=== PATIENT | male | born 2005 | race Asian ===

== ENCOUNTER 2023-07-06 18:20 | Observation (INO) ==
--- NOTE | 2023-07-06 18:54 | ED Triage Note ---
Date of Service July 06, 2023 History of Present Illness This patient was briefly evaluated while in triage. An abbreviated physical exam was performed. This patient is a 18-year-old Male who presents to the ED for evaluation of rhabdomyolysis. Patient states he was working out yesterday and saw [facility] today for pain across his back. He was called and told that his CK is elevated and that he had rhabdomyolysis. Physical Exam VITALS: Vitals are noted on the nurse's note and reviewed by myself. GENERAL: This is a 18-year-old male, in no acute distress, well-developed well- nourished. SKIN: The skin was without rashes, erythema, edema, or bruising. HEART: Regular rate and rhythm without murmurs gallops or rubs. LUNGS: Clear to auscultation bilaterally without wheezes, rales or rhonchi. NEURO: Patient was alert and oriented to person place and time. Initial orders for labs and / or imaging were placed and patient was placed in the waiting area until a bed is available. Please see further documentation for the full ED course. MDM / Impression Impression Impression: Rhabdomyolysis
[2023-07-06] MEDS ORDERED: SODIUM CHLORIDE 0.9% 2,000 ML IV ONE (20:58)
[2023-07-06 21:09] LABS: Basophils # (auto) 0.02 K/uL (0.00-0.20); Basophils % (auto) 0.2 %; Eosinophils % (auto) 1.1 %; Hematocrit (blood only) 41.8 % (42.0-52.0); Hemoglobin 14.9 g/dl (14.0-18.0); Immature Granulocytes # (auto) 0.03 K/uL (0.01-0.20); Immature Granulocytes % (auto) 0.3 %; Lymphocytes # (auto) 2.71 K/uL (1.20-3.40); Lymphocytes % (auto) 29.2 %; Mean Corpuscular Hemoglobin 31.2 pg (25.0-34.0); Mean Corpuscular Hgb Conc 35.6 g/dL (32.0-36.0); Mean Corpuscular Volume 87.4 fL (80.0-100.0); Mean Platelet Volume 9.4 fL (9.4-12.4); Monocytes # (auto) 0.55 K/uL (0.11-0.59); Monocytes % (auto) 5.9 %; Neutrophils # (auto) 5.88 K/uL (1.40-6.50); Neutrophils % (auto) 63.3 %; Platelet Count 214 K/uL (130-400); RDW Coefficient of Variation 11.1 % (11.5-14.5); RDW Standard Deviation 35.8 fL (36.4-46.3); Red Blood Count 4.78 M/uL (4.70-6.10); White Blood Count 9.29 K/ul (4.8-10.8)
[2023-07-06 21:28] LABS: Appearance Urine Clear (Clear); Bilirubin Urine Negative (Negative); Blood Urine Negative (Negative); Color Urine Yellow; Glucose Urine UA Negative (Negative); Ketones Urine Negative (Negative); Leukocyte Esterase Urine Negative (Negative); Nitrite Urine Negative (Negative); Protein Urine Negative (Negative); Specific Gravity Urine 1.009 (1.000-1.030); Urobilinogen Urine Negative (Negative)
[2023-07-06 21:28] LABS: BUN Creatinine Ratio 18.5 (10-20); Calcium 9.5 mg/dl (8.6-10.3); Creatinine Clr Calc Pharmacy 111.6 ml/min; Est GFR (African American) 138.3 ml/min; Est GFR (Non-African American) 119.3 ml/min; Potassium 3.5 mmol/L (3.5-5.1)
--- NOTE | 2023-07-06 21:44 | Emergency Department Note ---
History of Present Illness General Chief complaint: Illness Stated complaint: RHABDOMYOLYSIS, CK - 13K Time Seen by Provider: 07/06/23 20:58 History of Present Illness Maximum Pain Intensity: 6 18-year-old male presents emergency department with complaint of low back pain that started earlier today and some thigh pain. Patient states that he was at [facility] he was sent for further evaluation of rhabdo. Patient had lab work had a normal creatinine but he had a CPK of approximately 12,749. Patient states that he was lifting weights over the past week and then yesterday he was doing bench presses and upper extremity exercises and weightlifting. Patient has no prior history. Patient denies any nausea vomiting diarrhea abdominal pain decreased p.o. intake alcohol or caffeine ingestion. Past Med/Surg History Social History Smoking Status: Never smoker Preferred Language: Maltese Feels Safe at Home: Yes Immunizations: Past medical history denies past surgical history denies social history patient is a [employer] student Review of Systems A total of 10 systems reviewed and were otherwise negative Musculoskeletal: + back pain Physical Exam Vital Signs Vital Signs - 24 hr 07/06/23 18:50 07/06/23 21:21 07/06/23 21:29 Temperature 36.8 C Temperature Source Temporal Artery Scan Pulse Rate 62 58 L Pulse Rate [Apical] 60 Respiratory Rate 19 16 12 Respiratory Effort / Characteristics Non-Labored Respiratory Depth Normal Respiratory Pattern Regular Blood Pressure 113/67 Blood Pressure [Right Arm] 121/80 Blood Pressure Mean 82 Blood Pressure Mean [Right Arm] 93 Pulse Oximetry 100 100 100 Oxygen Delivery Method Room Air Room Air Room Air Sepsis Recent Fever Within 48 Hours No Sepsis New/Unexplained Change in Mental Status N/A Sepsis Action Taken by Nursing No Action Required 07/06/23 21:30 07/06/23 21:29 Temperature Temperature Source Pulse Rate 56 L 58 L Pulse Rate [Apical] Respiratory Rate 12 Respiratory Effort / Characteristics Respiratory Depth Respiratory Pattern Blood Pressure Blood Pressure [Right Arm] Blood Pressure Mean Blood Pressure Mean [Right Arm] Pulse Oximetry 100 Oxygen Delivery Method Room Air Sepsis Recent Fever Within 48 Hours Sepsis New/Unexplained Change in Mental Status Sepsis Action Taken by Nursing GENERAL: Patient is awake alert in no acute distress patient is resting comfortably and showing no signs of anxiety EYES: The conjunctivae are clear. The pupils are round and reactive. EARS, NOSE, MOUTH AND THROAT: The nose is without any evidence of any deformity. Mucous membranes are moist. Tongue is midline. NECK: The neck is nontender and supple. RESPIRATORY: Normal respiratory effort is noted there is no evidence of wheezing rhonchi or rales CARDIOVASCULAR: Regular rate and rhythm noted there no murmurs rubs or gallops normal S1 normal S2. GASTROINTESTINAL: The abdomen is soft. Abdomen is nontender. BACK: No midline tenderness or or step-off noted range of motion in flexion extension as well as rotation; tenderness bilateral lower lumbar region with muscle spasm present MUSCULOSKELETAL/EXTREMITIES: There is no evidence of gross deformity full range of motion is noted in the hips and shoulders. SKIN: There is no obvious evidence of any rash. There are no petechiae, pallor or cyanosis noted. NEUROLOGIC: Patient is awake alert and oriented x3 strength is symmetric Course Reevaluation(s) Reevaluation #1: Patient was started on IV fluids. Patient will be admitted for rhabdo. Patient is making urine Time: 21:55 Administered Medications Sodium Chloride (Nss 1000ml) 2,000 mls @ 999 mls/hr IV .Q2H1M ONE Stop: 07/06/23 22:58 Last Admin: 07/06/23 21:12 Dose: 999 mls/hr Documented By: ROMAINE Medical Decision Making Medical Records Attestation: I reviewed the patient's medical records. Home Medications Current Medication List: was personally reviewed by me Laboratory Data Attestation: I reviewed the patient's lab results. Labs interpreted by me show an elevated CK 07/06/23 20:55 07/06/23 20:55 Lab Results 07/06/23 07/06/23 07/06/23 Range/Units 20:55 20:55 21:08 WBC 9.29 (4.8-10.8) K/ul RBC 4.78 (4.70-6.10) M/uL Hgb 14.9 (14.0-18.0) g/dl Hct 41.8 L (42.0-52.0) % MCV 87.4 (80.0-100.0) fL MCH 31.2 (25.0-34.0) pg MCHC 35.6 (32.0-36.0) g/dL RDW Std Deviation 35.8 L (36.4-46.3) fL RDW Coeff of Vi 11.1 L (11.5-14.5) % Plt Count 214 (130-400) K/uL MPV 9.4 (9.4-12.4) fL Immature Gran % (Auto) 0.3 % Neut % (Auto) 63.3 % Lymph % (Auto) 29.2 % [place] % (Auto) 5.9 % Eos % (Auto) 1.1 % Baso % (Auto) 0.2 % Neut # (Auto) 5.88 (1.40-6.50) K/uL Lymph # (Auto) 2.71 (1.20-3.40) K/uL [place] # (Auto) 0.55 (0.11-0.59) K/uL Eos # (Auto) 0.10 (0.00-0.50) K/uL Baso # (Auto) 0.02 (0.00-0.20) K/uL Immature Gran # (Auto) 0.03 (0.01-0.20) K/uL Sodium 137 (136-145) mmol/L Potassium 3.5 (3.5-5.1) mmol/L Chloride 99 (98-107) mmol/L Carbon Dioxide 30 (21-32) mmol/L Anion Gap 8 (3-11) BUN 17 (6-23) mg/dl Creatinine 0.92 (0.6-1.4) mg/dl Est Cr Clr Drug Dosing 111.6 ml/min Est GFR ( Amer) 138.3 ml/min Est GFR (Non-Af Amer) 119.3 ml/min BUN/Creatinine Ratio 18.5 (10-20) Glucose 106 H (70-99(Fasting)) mg/dl Calcium 9.5 (8.6-10.3) mg/dl Magnesium 1.9 (1.7-2.4) mg/dl Total Bilirubin 0.5 (0.2-1.0) mg/dl AST 120 H (13-39) U/L ALT 79 H (7-52) U/L Alkaline Phosphatase 75 (34-104) U/L Total Creatine Kinase 7347 H (30-223) U/L Total Protein 7.6 (6.0-8.3) gm/dl Albumin 4.6 (3.4-5.0) gm/dl Globulin 3.0 (2.5-4.0) gm/dl Albumin/Globulin Ratio 1.5 (0.9-2) Urine Color Yellow Urine Appearance Clear (Clear) Urine pH 6.0 (4.5-7.5) Ur Specific [place] 1.009 (1.000-1.030) Urine Protein Negative (Negative) Urine Glucose (UA) Negative (Negative) Urine Ketones Negative (Negative) Urine Blood Negative (Negative) Urine Nitrite Negative (Negative) Urine Bilirubin Negative (Negative) Urine Urobilinogen Negative (Negative) Ur Leukocyte Esterase Negative (Negative) MDM Narrative Medical decision making differential diagnosis includes rhabdo, dehydration, electrolyte abnormality, metabolic derangement, muscle spasm Plan is to check labs, give IV fluids, monitor urine output, patient had an elevated CK as an outpatient and will be treated for rhabdo, patient will be admitted Impression & Plan Rhabdomyolysis Discharge Plan Visit Data Chief Complaint: Illness Stated Complaint: RHABDOMYOLYSIS, CK - 13K ED Provider: Finesse Mccray Discharge Problem: Rhabdomyolysis Patient Disposition: Admitted As Inpatient Forms Stand Alone Forms: My [facility] Referrals Referrals: [facility] [Primary Care Provider] -
[2023-07-06 21:49] LABS: Albumin Globulin Ratio 1.5 (0.9-2); Albumin Level 4.6 gm/dl (3.4-5.0); Bilirubin,Total 0.5 mg/dl (0.2-1.0); Magnesium 1.9 mg/dl (1.7-2.4); Total Protein 7.6 gm/dl (6.0-8.3)
--- NOTE | 2023-07-06 22:01 | History & Physical Report ---
Date of Service July 06, 2023 Assessment & Plan (1) Transaminitis: (2) Dehydration: (3) Rhabdomyolysis: Plan Rhabdomyolysis- Total CK 7347 Normal creatinine Patient is status post 2 L normal saline in the ED Continue rehydration with NSS + KCl 20 mEq at 150 mils per hour Repeat BMP, magnesium and CK in the a.m. Avoid acetaminophen and NSAIDs Transaminitis- AST 120, ALT 79- Secondary to rhabdomyolysis Continue IV fluids as above and recheck laboratories in a.m. If transaminitis is persistent or worsen, will add additional hepatitis serologies at that time. History of Present Illness Chief Complaint: The patient presents to the emergency department as a referral from [facility] where he went due to severe low back pain, and pain in bilateral thighs, and right ankle, all worsening over the past 24 to 48 hours, but began about 1 week ago. Primary Care Provider: [facility] The patient is a 18-year-old male with no significant past medical history or surgical history, who presents to the emergency department as a referral from [facility] as noted above. He reports that he has been exercising with weight lifting and other strenuous exercise over the past week. He notes that over the past 24 to 48 hours he has developed worsening low back pain that initially became apparent after waking up, and bilateral thigh pain, with right ankle pain, that occurred when he twisted his ankle. He a [facility] had laboratories performed, and was told that his muscle enzyme was elevated, that he had rhabdomyolysis, that he needed to come to the emergency department for assessment. He denies any use of muscle stimulants. Past Med/Surg History Social History Smoking Status: Never smoker Preferred Language: Bhutanese Feels Safe at Home: Yes Review of Systems Review of Systems: The patient denies chest pain, palpitations, shortness of breath, dyspnea on exertion, cough, lower extremity swelling, sore throat, fevers, chills, sweats, nausea, vomiting, diarrhea , constipation, abdominal pain, pelvic pain, blood in urine or stool, dysuria, urinary frequency or urgency, lightheadedness, dizziness, headache, memory loss, loss of consciousness, rash, abnormal bruising or bleeding, neck pain, or night sweats. The review of systems is otherwise negative other than for that already noted above, and at least 10 systems have been reviewed. Physical Exam 2 Physical Exam: The patient is awake, alert and oriented 3, well developed and well nourished, normocephalic and atraumatic, lying in bed and in no acute distress. HEENT--PERRL, EOMI, mucous membranes and oropharynx dry. Neck--supple. No JVD. No bruits. Thyroid normal, trachea midline, no adenopathy. Heart--normal S1 and S2. No murmurs, rubs or gallops. Lungs--clear bilaterally, no respiratory distress, no accessory muscle use. Abdomen--normal bowel sounds and soft. Nontender. Nondistended, no hernias or masses, no organomegaly. Extremities--no cyanosis or clubbing. No edema. There are good distal pulses b/l. Dermatologic--normal skin turgor, normal color, no abnormal lymph nodes, no rash. Neurologic--cranial nerves II through XII grossly intact. Rheumatologic-normal range of motion, however, patient with moderately severe low back and upper back pain, bilateral thigh pain and right lower extremity pain with any simple movement. Psychiatric--normal affect. Results & Data Results & Data Vital Signs (Past 12 Hours) Vital Signs Temp Pulse Pulse Resp BP BP Pulse Ox 07/06/23 21:29 58 L 07/06/23 21:30 56 L 12 100 07/06/23 21:29 58 L 12 100 07/06/23 21:21 60 16 121/80 100 07/06/23 18:50 36.8 C 62 19 113/67 100 O2 Del Method 07/06/23 21:29 07/06/23 21:30 Room Air 07/06/23 21:29 Room Air 07/06/23 21:21 Room Air 07/06/23 18:50 Room Air Laboratory Results Laboratory Results WBC 9.29 K/ul (4.8-10.8) 07/06/23 20:55 RBC 4.78 M/uL (4.70-6.10) 07/06/23 20:55 Hgb 14.9 g/dl (14.0-18.0) 07/06/23 20:55 Hct 41.8 % (42.0-52.0) L 07/06/23 20:55 MCV 87.4 fL (80.0-100.0) 07/06/23 20:55 MCH 31.2 pg (25.0-34.0) 07/06/23 20:55 MCHC 35.6 g/dL (32.0-36.0) 07/06/23 20:55 RDW Std Deviation 35.8 fL (36.4-46.3) L 07/06/23 20:55 RDW Coeff of Vi 11.1 % (11.5-14.5) L 07/06/23 20:55 Plt Count 214 K/uL (130-400) 07/06/23 20:55 MPV 9.4 fL (9.4-12.4) 07/06/23 20:55 Immature Gran % (Auto) 0.3 % 07/06/23 20:55 Neut % (Auto) 63.3 % 07/06/23 20:55 Lymph % (Auto) 29.2 % 07/06/23 20:55 [place] % (Auto) 5.9 % 07/06/23 20:55 Eos % (Auto) 1.1 % 07/06/23 20:55 Baso % (Auto) 0.2 % 07/06/23 20:55 Neut # (Auto) 5.88 K/uL (1.40-6.50) 07/06/23 20:55 Lymph # (Auto) 2.71 K/uL (1.20-3.40) 07/06/23 20:55 [place] # (Auto) 0.55 K/uL (0.11-0.59) 07/06/23 20:55 Eos # (Auto) 0.10 K/uL (0.00-0.50) 07/06/23 20:55 Baso # (Auto) 0.02 K/uL (0.00-0.20) 07/06/23 20:55 Immature Gran # (Auto) 0.03 K/uL (0.01-0.20) 07/06/23 20:55 Sodium 137 mmol/L (136-145) 07/06/23 20:55 Potassium 3.5 mmol/L (3.5-5.1) 07/06/23 20:55 Chloride 99 mmol/L (98-107) 07/06/23 20:55 Carbon Dioxide 30 mmol/L (21-32) 07/06/23 20:55 Anion Gap 8 (3-11) 07/06/23 20:55 BUN 17 mg/dl (6-23) 07/06/23 20:55 Creatinine 0.92 mg/dl (0.6-1.4) 07/06/23 20:55 Est Cr Clr Drug Dosing 111.6 ml/min 07/06/23 20:55 Est GFR ( Amer) 138.3 ml/min 07/06/23 20:55 Est GFR (Non-Af Amer) 119.3 ml/min 07/06/23 20:55 BUN/Creatinine Ratio 18.5 (10-20) 07/06/23 20:55 Glucose 106 mg/dl (70-99(Fasting)) H 07/06/23 20:55 Calcium 9.5 mg/dl (8.6-10.3) 07/06/23 20:55 Magnesium 1.9 mg/dl (1.7-2.4) 07/06/23 20:55 Total Bilirubin 0.5 mg/dl (0.2-1.0) 07/06/23 20:55 AST 120 U/L (13-39) H 07/06/23 20:55 ALT 79 U/L (7-52) H 07/06/23 20:55 Alkaline Phosphatase 75 U/L (34-104) 07/06/23 20:55 Total Creatine Kinase 7347 U/L (30-223) H 07/06/23 20:55 Total Protein 7.6 gm/dl (6.0-8.3) 07/06/23 20:55 Albumin 4.6 gm/dl (3.4-5.0) 07/06/23 20:55 Globulin 3.0 gm/dl (2.5-4.0) 07/06/23 20:55 Albumin/Globulin Ratio 1.5 (0.9-2) 07/06/23 20:55 Urine Color Yellow 07/06/23 21:08 Urine Appearance Clear (Clear) 07/06/23 21:08 Urine pH 6.0 (4.5-7.5) 07/06/23 21:08 Ur Specific [place] 1.009 (1.000-1.030) 07/06/23 21:08 Urine Protein Negative (Negative) 07/06/23 21:08 Urine Glucose (UA) Negative (Negative) 07/06/23 21:08 Urine Ketones Negative (Negative) 07/06/23 21:08 Urine Blood Negative (Negative) 07/06/23 21:08 Urine Nitrite Negative (Negative) 07/06/23 21:08 Urine Bilirubin Negative (Negative) 07/06/23 21:08 Urine Urobilinogen Negative (Negative) 07/06/23 21:08 Ur Leukocyte Esterase Negative (Negative) 07/06/23 21:08 Code Status & VTE Plan Code Status Full code VTE Prophylaxis Plan VTE Prophylaxis will be ordered: Yes PG Care Time/CCT Total # of Minutes Spent Total Time Spent with Patient: Total time spent is greater than 50% in coordination of care (as documented) at patient's floor/unit and/or counseling patient: Coding Level of Care Code 95208 INT INP/OBS CARE 2/55MIN Diagnoses Transaminitis R74.01 Dehydration E86.0 Rhabdomyolysis M62.82
[2023-07-06] MEDS ORDERED: ONDANSETRON INJ 2 MG/ML 2 ML VIAL IV PRN (23:03)
[2023-07-06] MEDS: NSS + 20MEQ KCL 20 MEQ/1,000 ML BAG IV SCH (23:27)
[2023-07-07] MEDS: NSS + 20MEQ KCL 20 MEQ/1,000 ML BAG IV SCH ×3 (05:46→19:21)
[2023-07-07 08:08] LABS: Basophils # (auto) 0.02 K/uL (0.00-0.20); Basophils % (auto) 0.4 %; Eosinophils # (auto) 0.07 K/uL (0.00-0.50); Eosinophils % (auto) 1.3 %; Hematocrit (blood only) 40.2 % (42.0-52.0); Hemoglobin 14.1 g/dl (14.0-18.0); Immature Granulocytes # (auto) 0.01 K/uL (0.01-0.20); Immature Granulocytes % (auto) 0.2 %; Lymphocytes % (auto) 41.9 %; Mean Corpuscular Hemoglobin 30.8 pg (25.0-34.0); Mean Corpuscular Hgb Conc 35.1 g/dL (32.0-36.0); Mean Corpuscular Volume 87.8 fL (80.0-100.0); Mean Platelet Volume 9.6 fL (9.4-12.4); Monocytes # (auto) 0.46 K/uL (0.11-0.59); Monocytes % (auto) 8.4 %; Neutrophils # (auto) 2.63 K/uL (1.40-6.50); Neutrophils % (auto) 47.8 %; Platelet Count 200 K/uL (130-400); RDW Coefficient of Variation 11.3 % (11.5-14.5); RDW Standard Deviation 35.9 fL (36.4-46.3); Red Blood Count 4.58 M/uL (4.70-6.10); White Blood Count 5.49 K/ul (4.8-10.8)
[2023-07-07 08:33] LABS: BUN Creatinine Ratio 13.8 (10-20); Calcium 8.8 mg/dl (8.6-10.3); Creatinine Clr Calc Pharmacy 142.5 ml/min; Est GFR (Non-African American) 128.6 ml/min
[2023-07-07 09:11] LABS: Albumin Globulin Ratio 1.6 (0.9-2); Albumin Level 3.9 gm/dl (3.4-5.0); Globulin 2.5 gm/dl (2.5-4.0); Magnesium 1.8 mg/dl (1.7-2.4); Total Protein 6.4 gm/dl (6.0-8.3)
--- NOTE | 2023-07-07 18:56 | Hospitalist Progress Note ---
Date of Service July 07, 2023 Assessment & Plan (1) Rhabdomyolysis: Plan: 2nd to recent heavy exercise program. Biochemically improved. CPK 7340, now down to 4260. Creatinine stable. u/a without blood. Continue copious IV hydration. Repeat BMP/CPK am. Discussed rhabdomyolysis in detail with patient today. (2) Transaminitis: Plan: Likely 2nd rhabdomyolysis - improving. Repeat AST/ALT am. (3) Dehydration: Plan: Improved. Cont IV fluids. Plan If CPK is <2000 tomorrow, if he is feeling well, and if renal function is stable can likely d/c home with close outpatient f/u. Admission and Anticipated Discharge Date Admission Date: July 06, 2023 Subjective pt resting in bed comfortably back pain modestly better than yesterday arm soreness also better urine is clear, not brown/dark eating/drinking well Review of Systems Review of Systems: pulm - no dyspnea GI - no abd pain/nausea/emesis Physical Exam Physical Exam: gen - WD, WN, NAD mouth - MMM heart - RRR, s1 s2, no murmur lungs - CTA b/l abd - soft, NT, ND, BS+, no HSM ext - no edema, pulses 2+ b/l Results & Data Results & Data Vital Signs (Past 12 Hours) Vital Signs Temp Pulse Resp BP Pulse Ox O2 Del Method 07/07/23 16:19 36.9 C 60 18 108/70 99 Room Air 07/07/23 08:32 36.7 C 57 L 18 107/64 99 Room Air Laboratory Results Laboratory Results - last 24 hr 07/06/23 07/06/23 07/06/23 20:55 20:55 21:08 WBC 9.29 RBC 4.78 Hgb 14.9 Hct 41.8 L MCV 87.4 MCH 31.2 MCHC 35.6 RDW Std Deviation 35.8 L RDW Coeff of Vi 11.1 L Plt Count 214 MPV 9.4 Immature Gran % (Auto) 0.3 Neut % (Auto) 63.3 Lymph % (Auto) 29.2 [place] % (Auto) 5.9 Eos % (Auto) 1.1 Baso % (Auto) 0.2 Neut # (Auto) 5.88 Lymph # (Auto) 2.71 [place] # (Auto) 0.55 Eos # (Auto) 0.10 Baso # (Auto) 0.02 Immature Gran # (Auto) 0.03 Sodium 137 Potassium 3.5 Chloride 99 Carbon Dioxide 30 Anion Gap 8 BUN 17 Creatinine 0.92 Est Cr Clr Drug Dosing 111.6 Est GFR ( Amer) 138.3 Est GFR (Non-Af Amer) 119.3 BUN/Creatinine Ratio 18.5 Glucose 106 H Calcium 9.5 Magnesium 1.9 Total Bilirubin 0.5 AST 120 H ALT 79 H Alkaline Phosphatase 75 Total Creatine Kinase 7347 H Total Protein 7.6 Albumin 4.6 Globulin 3.0 Albumin/Globulin Ratio 1.5 Urine Color Yellow Urine Appearance Clear Urine pH 6.0 Ur Specific [place] 1.009 Urine Protein Negative Urine Glucose (UA) Negative Urine Ketones Negative Urine Blood Negative Urine Nitrite Negative Urine Bilirubin Negative Urine Urobilinogen Negative Ur Leukocyte Esterase Negative 07/07/23 07/07/23 07:26 07:26 WBC 5.49 RBC 4.58 L Hgb 14.1 Hct 40.2 L MCV 87.8 MCH 30.8 MCHC 35.1 RDW Std Deviation 35.9 L RDW Coeff of Vi 11.3 L Plt Count 200 MPV 9.6 Immature Gran % (Auto) 0.2 Neut % (Auto) 47.8 Lymph % (Auto) 41.9 [place] % (Auto) 8.4 Eos % (Auto) 1.3 Baso % (Auto) 0.4 Neut # (Auto) 2.63 Lymph # (Auto) 2.30 [place] # (Auto) 0.46 Eos # (Auto) 0.07 Baso # (Auto) 0.02 Immature Gran # (Auto) 0.01 Sodium 140 Potassium 4.0 Chloride 107 Carbon Dioxide 28 Anion Gap 5 BUN 11 Creatinine 0.80 Est Cr Clr Drug Dosing 142.5 Est GFR ( Amer) 149.0 Est GFR (Non-Af Amer) 128.6 BUN/Creatinine Ratio 13.8 Glucose 91 Calcium 8.8 Magnesium 1.8 Total Bilirubin 1.0 D AST 79 H ALT 62 H Alkaline Phosphatase 64 Total Creatine Kinase 4260 H Total Protein 6.4 Albumin 3.9 Globulin 2.5 Albumin/Globulin Ratio 1.6 Urine Color Urine Appearance Urine pH Ur Specific [place] Urine Protein Urine Glucose (UA) Urine Ketones Urine Blood Urine Nitrite Urine Bilirubin Urine Urobilinogen Ur Leukocyte Esterase PG Care Time/CCT Total # of Minutes Spent Total Time Spent with Patient: Total time spent is greater than 50% in coordination of care (as documented) at patient's floor/unit and/or counseling patient: Coding Level of Care Code 45541 SUB INP/OBS CARE 12/03MIN Diagnoses Rhabdomyolysis M62.82 Transaminitis R74.01 Dehydration E86.0
[2023-07-08] MEDS: NSS + 20MEQ KCL 20 MEQ/1,000 ML BAG IV SCH ×3 (01:24→14:57)
[2023-07-08 07:42] LABS: Creatinine Clr Calc Pharmacy 132.6 ml/min; Est GFR (African American) 144.7 ml/min; Est GFR (Non-African American) 124.8 ml/min; Potassium 3.9 mmol/L (3.5-5.1)
--- NOTE | 2023-07-16 12:27 | Discharge Summary ---
Date of Service date of admission - July 06, 2023 date of discharge - July 08, 2023 Admission HPI Per Admitting Provider The patient is a 18-year-old male with no significant past medical history or surgical history, who presents to the emergency department as a referral from [facility] as noted above. He reports that he has been exercising with weight lifting and other strenuous exercise over the past week. He notes that over the past 24 to 48 hours he has developed worsening low back pain that initially became apparent after waking up, and bilateral thigh pain, with right ankle pain, that occurred when he twisted his ankle. He a [facility] had laboratories performed, and was told that his muscle enzyme was elevated, that he had rhabdomyolysis, that he needed to come to the emergency department for assessment. He denies any use of muscle stimulants. Principal Diagnosis 1. Rhabdomyolysis - resolving 2. Transaminitis - 2nd to #1 - improving 3. Dehydration - resolved Discharge Exam gen - WD, WN, NAD mouth - MMM heart - RRR, s1 s2, no murmur lungs - CTA b/l abd - soft, NT, ND, BS+, no HSM ext - no edema, pulses 2+ b/l Discharge Data Allergies Allergy/AdvReac Type Severity Reaction Status Date / Time No Known Allergies Allergy Unverified 07/06/23 22:19 Hospital Course (1) Rhabdomyolysis: 2nd to recently started heavy exercise program. Peak CPK 7340, with level of 1771 at time of discharge. Was given copious IV hydration while here. Creatinine was stable during the stay (0.8 to 0.9). u/a without blood. Discussed rhabdomyolysis in detail with patient and his family prior to discha rge. He will need to continue copious hydration upon discharge, not participate in strenuous activities until seen in follow-up, and have repeat blood work in 2-3 days post-discharge to ensure normalization of his LFTs & CPK. (2) Transaminitis: 2nd rhabdomyolysis - improving. Peak AST 120, falling to 51 at discharge. Peak ALT 79, falling to 54 at discharge. Asked to have repeat LFTs in a few days post-discharge. Asked to not consume alcohol post-discharge. (3) Dehydration: Resolved with IV fluids. Total Time Total Time Spent Total Time Spent (In Minutes): 25 Discharge Plan Discharge Items Patient Disposition: Home - Self-Care Reason For Visit: Rhabdomyolysis Discharge Diagnosis: 1. Rhabdomyolysis due to recent heavy exercise - improving. Presenting CPK (Creatine kinase) was 7300, improving to 1771 on day of discharge. 2. abnormal liver function tests - due to #1 above - improving. Activity: As commented below Activity Comment: NO HEAVY LIFTING OR HEAVY EXERTIONAL ACTIVITIES UNTIL CLEARED BY [facility] Lifting: No more than 10 pounds Exercise/Sports: Wait until after follow-up appointment Non-emergency contact: Primary Care Provider Call non-emergency contact if: you have any medication questions and your symptoms worsen Follow-up/Referrals: [facility] [Primary Care Provider] - (See [facility] This Thursday for recheck of your labs and hospital follow-up ) Diet: Regular Addtl Attending Provider Instructions: Mr Hernandez, You were hospitalized for rhabdomyolysis. This was brought on by heavy exercise and weight lifting. Your peak creatine kinase level ("CPK") was 7300. It improved to 1771 on day of discharge with IV fluids. There was NO evidence of any damage to your kidneys. Your kidney function levels in the blood were normal. Please see handout on rhabdomyolysis. You had mildly elevated liver function tests. This was due to your rhabdomyolysis. As the CPK level falls the liver function tests will fall and go back to normal. You are making a good recovery from this and the CPK level will return to normal over the next few days to week. Recommendations - 1. DRINK PLENTY OF WATER OR GATORADE OR POWERADE (OR COMBINATION) OVER THE NEXT 4-5 DAYS. Use your urine as a guide. If the color of your urine is very light colored you are doing a nice job keeping up with fluids. If the urine is dark/concentrated please increase your fluid intake. 2. Shoot for at least 2500ml of fluid each day over the next 4-5 days. This will protect your kidneys and drive the CPK level back to normal. 3. NO HEAVY EXERCISE/EXERTIONAL ACTIVITIES UNTIL [facility] CLEARS YOU. THIS INCLUDES WEIGHT LIFTING, SWIMMING, RUNNING, JOGGING, ETC. Light walks are fine. If your class is a long distance from your home please ask your professor to allow you to attend virtually on a temporary basis. 4. You will need repeat liver tests and CPK level this Thursday, 07/10. Please see [facility] for this. You will have to call to schedule this appointment. 5. No alcohol. 6. Ok to use tylenol but do so in moderation (650mg every 6 hours as needed for pain). Follow-up - see [facility] THIS THURSDAY Return to [facility] if - * you arms/legs/back become very sore/tender once again * you develop swelling in your arms or legs * your urine has a [employer] color/tea color (this could indicate myoglobin in your urine from the rhabdomyolysis condition) * any other concerns Have a good semester! Pending Studies at Discharge: No Stand-Alone Forms: My [facility], Work/School Release, Smoking Cessation Medications and DC Order Prescriptions: No Action No Known Home Medications Discharge Orders: Discharge Order (Routine); Ordered 07/08/23 Ordered By: Eduardo Jean/Other Patient Handouts: Rhabdomyolysis Admission Data Admit Date/Time: 07/06/23 21:50 Attending Provider: Eduardo Martin Admit Provider: Sanjiv Delgadillo Primary Care Provider: [facility] Other Interventions: Discharge Summary Assessment (RN) Last Done: 07/08/23 18:21 Coding Level of Care Code 59782 IN/OBS DISCH 30 MIN/LESS Diagnoses Rhabdomyolysis M62.82 Transaminitis R74.01 Dehydration E86.0
== END 2023-07-08 18:47 | disposition home or self-care (01) | DRG 558 ==
LOC: ED 18:20 → INTOOBSV 21:50 → 3W 21:50 → SUATTDRO 21:50 → 3W 22:44